=== PATIENT | male | born 1970 | race Caucasian/White ===

== ENCOUNTER 2017-11-18 12:06 | Emergency (ER) | payer OTHER ==
[~2017-11-18] VITALS: Ht 188 cm; Wt 93.0 kg
[2017-11-18] MEDS ORDERED: methylPREDNISolone sod succ 125mg/2ml vial IV ONE (12:20)
[2017-11-18] MEDS ORDERED: orphenadrine citrate 60mg/2ml inj. IM ONE (12:20)
[2017-11-18] MEDS ORDERED: ketorolac trometh. 30mg/ml inj. IV ONE (12:20)
[2017-11-18] MEDS ORDERED: fentaNYL/PF 50MCG/1 ML 2ML syringe IV ONE ×2 (12:20→13:25)
[2017-11-18] MEDS ORDERED: LORazepam 2 mg/ml vial IV ONE (13:15)
[2017-11-18] MEDS ORDERED: HYDROmorphone 1 mg/ml syringe IV ONE (13:45)
[2017-11-18] MEDS ORDERED: ketamine 10mg/ml 20ml inj IV ONE (14:45)
[2017-11-18] MEDS ORDERED: normal saline 1000ML IV soln IVB ONE (16:00)
[2017-11-18 17:10] VITALS: BP 136/75
== END 2017-11-18 17:45 | disposition short-term general hospital (02) ==
LOC: ER 12:07
DX: M51.16 Intervertebral disc disorders with radiculopathy, lumbar region (principal); G89.29 Other chronic pain
CPT/HCPCS: 72148; 96372; 96374; 96375; 96376; 99291; J1170; J1885; J2060; J2360; J2930; J3010; J7030

== ENCOUNTER 2019-02-01 21:18 | Emergency (ER) | payer BC, OTHER ==
[~2019-02-01] VITALS: Ht 188 cm; Wt 88.6 kg
[2019-02-01] MEDS ORDERED: HYDROcodone/acetaminophen 10/325mg tab PO STA (21:26)
--- NOTE | 2019-02-01 21:50 | NUR ---
XRAY AT BS, NOTICED RING. UNWRAPPED DRESSING AND REMOVED THE RING.
[2019-02-01] MEDS ORDERED: morphine 4 MG/ML inj SYRINge IV ONE ×2 (22:25→22:30)
[2019-02-01] MEDS ORDERED: ondansetron/PF 4mg/2ml inj IV ONE ×2 (22:25→22:30)
[2019-02-01] MEDS ORDERED: ceFAZolin 1000mg inj IV ONE (22:30)
[2019-02-01] MEDS ORDERED: Cefazolin 2GM/100ML NS IVPB 100 ML IV ONE (22:50)
[2019-02-01] MEDS ORDERED: LIDOcaine 1% 30ml preserv. free vial IJ ONE (22:50)
[2019-02-01] MEDS ORDERED: bacitracin 15gm ointment TP ONE (22:50)
[2019-02-01] MEDS ORDERED: TETanus/Pertussis (Acell)/Diphther VAC/PF (Tdap-Adult) 0.5ml syringe IM ONE (22:50)
[2019-02-01] MEDS ORDERED: LIDOcaine 1% w/epiNEPHrine 1:200,000 30ml vial IM ONE (23:45)
[2019-02-02] MEDS ORDERED: gentamicin in saline, iso-osm 80 MG/50 ML premix IV ONE (00:30)
[2019-02-02] MEDS ORDERED: gentamicin inj 80 MG in normal saline 100ml IV soln 100 ML IV ONE (00:40)
[2019-02-02] MEDS ORDERED: ondansetron 4mg rapidly disintigrating tab PO ONE (01:15)
[2019-02-02] MEDS ORDERED: HYDROcodone/acetaminophen 10/325mg tab PO ONE (01:20)
[2019-02-02] MEDS ORDERED: ONDA4TAB6 PO (01:52)
[2019-02-02] MEDS ORDERED: HYDR-4353 PO (01:52)
[2019-02-02] MEDS ORDERED: CEPH-572 PO (01:52)
[2019-02-02 02:40] VITALS: BP 129/85
== END 2019-02-02 03:59 | disposition home or self-care (01) ==
LOC: ER 21:19
DX: S62.637B Displaced fracture of distal phalanx of left little finger, initial encounter for open fracture (principal); S62.635B Displaced fracture of distal phalanx of left ring finger, initial encounter for open fracture; G89.29 Other chronic pain; Z79.2 Long term (current) use of antibiotics; Z79.899 Other long term (current) drug therapy; W22.8XXA Striking against or struck by other objects, initial encounter; Y93.89 Activity, other specified; Y92.098 Other place in other non-institutional residence as the place of occurrence of the external cause; Y99.8 Other external cause status
CPT/HCPCS: 12004; 29125; 73140; 90471; 90714; 96365; 96367; 96375; 96376; 99284; J0690; J1580; J2001; J2270; J2405; 12005; 99283

== ENCOUNTER 2019-02-09 07:05 | Emergency (ER) | payer BC ==
[~2019-02-09] VITALS: Ht 188 cm; Wt 90.0 kg
[~2019-02-09 07:05] MED LIST: CEPH-572 PO; HYDR-4353 PO; ONDA4TAB6 PO
[2019-02-09 07:07] VITALS: BP 134/86
[2019-02-09] MEDS ORDERED: bacitracin 15gm ointment TP ONE (07:35)
== END 2019-02-09 09:11 | disposition home or self-care (01) ==
LOC: ER 07:06
DX: S61.213D Laceration without foreign body of left middle finger without damage to nail, subsequent encounter (principal); S61.215D Laceration without foreign body of left ring finger without damage to nail, subsequent encounter; S61.217D Laceration without foreign body of left little finger without damage to nail, subsequent encounter; Z48.01 Encounter for change or removal of surgical wound dressing; G89.29 Other chronic pain; Z79.899 Other long term (current) drug therapy; X58.XXXD Exposure to other specified factors, subsequent encounter
CPT/HCPCS: 64450; 99284